=== PATIENT | male | born 1970 | race Two or more races ===

== ENCOUNTER 2019-12-11 08:43 | Day surgery (SDC) | payer OTHER ==
[~2019-12-11] VITALS: Ht 175.3 cm; Wt 83.9 kg
[2019-12-11] VITALS (7 sets, daily range): BP systolic 118–139; BP diastolic 71–89
--- NOTE | 2019-12-11 06:35 | Anethesia Preoperative Eval ---
Anesthesia Pre-op PMH/ROS General Date of Evaluation: Dec 11, 2019 Anesthesiologist: Dilan ASA Score: ASA 3 Mallampati Score Class I : Soft palate, uvula, fauces, pillars visible Class II: Soft palate, uvula, fauces visible Class III: Soft palate, base of uvula visible Class IV: Only hard plate visible Mallampati Classification: Class II Surgeon: Michelle Diagnosis: Screening Surgical Procedure: Colonoscopy Anesthesia History: none Family History: no anesthesia problems Allergies: Coded Allergies: No Known Allergies (Unverified , 12/11/19) Medications: see eMAR Patient NPO?: Yes NPO Date: Dec 11, 2019 NPO Time: 00:00 Past Medical History Cardiovascular: Reports: HTN, other - HLD; Denies: CAD, [place], valve dz, arrhythmia Pulmonary: Denies: asthma, COPD, RADHA, other Gastrointestinal/Genitourinary: Denies: GERD, CRI, ESRD, other Neurologic/Psychiatric: Reports: CVA; Denies: dementia, depression/anxiety, TIA, other Endocrine: Denies: DM, hypothyroidism, steroids, other HEENT: Denies: cataract (L), cataract (R), glaucoma, BARROW (L), BARROW (R), other Hematology/Immune: Denies: anemia, DVT, bleeding disorder, other Musculoskeletal/Integumentary: Denies: OA, RA, DJD, DDD, edema, other PSxH Narrative: lumbar microdiscectomy Anesthesia Pre-op Phys. Exam Physician Exam see chart Constitutional: NAD Cardiovascular: RRR Respiratory: CTA Airway Exam Mallampati Score: Class II MO: full ROM: full Anesthesia Pre-op A/P Labs see chart Risk Assessment & Plan Assessment: ASA III Plan: MAC Status Change Before Surgery: No Pre-Antibiotics Drug: N/A Ruth Ann Kong MD Dec 11, 2019 06:35
[2019-12-11] MEDS ORDERED: ATORVASTATIN CA20 MG ORAL (09:24)
[2019-12-11] MEDS ORDERED: FOLIC ACID1 MG ORAL (09:24)
[2019-12-11] MEDS ORDERED: ASPIRIN81 MG ORAL (09:24)
[2019-12-11] MEDS ORDERED: PLAVIX75 MG ORAL (09:24)
[2019-12-11] MEDS ORDERED: COQ-10100 M1 PO (09:24)
[2019-12-11] MEDS ORDERED: Lidocaine 1% MPF 10mg/ml 5ml ONE (09:30)
--- NOTE | 2019-12-11 09:35 | Pre-Procedure Note/Attestation ---
Pre-Procedure Note/Attestation Complete Prior to Procedure Planned Procedure: not applicable Procedure Narrative: colonoscopy Indications for Procedure Pre-Operative Diagnosis: screening Attestation I attest that I discussed the nature of the procedure; its benefits; risks and complications; and alternatives (and the risks and benefits of such alternatives), prior to the procedure, with the patient (or the patient's legal hr representative). I attest that, if there was a reasonable possibility of needing a blood tra nsfusion, the patient (or the patient's legal hr representative) was given the [facility] standardized written summary, pursuant to the Ernesto [place] Blood Safety Act ([place] Health and Safety Code # 1645, as amended). I attest that I re-evaluated the patient just prior to the surgery and that there has been no change in the patient's H&P, except as documented below: Chavo Martinez MD Dec 11, 2019 09:35
--- NOTE | 2019-12-11 09:35 | Short Stay Surgery H&P ---
History of Present Illness History of Present Illness Chief Complaint See attached H&P Patient forgot to stop Plavix as instructed Advised polyps would not be removed due to bleeding risk Option of cancelling procedure and postponing offered Patient declined cancellation. Wants to proceed with colonoscopy as planned understands may need to repeat colonoscopy if polyps found HPI Benjamín Perkins is a 49 year old male who was admitted on for Colon Screening Patient History Allergies: Coded Allergies: No Known Allergies (Unverified , 12/11/19) Medication History Scheduled Aspirin* (Aspirin*), 81 MG ORAL DAILY, (Reported) Atorvastatin Calcium* (Atorvastatin Calcium*), 20 MG ORAL BEDTIME, (Reported) Clopidogrel Bisulfate* (Plavix*), 75 MG ORAL DAILY, (Reported) Folic Acid* (Folic Acid*), 1 MG ORAL DAILY, (Reported) Ubidecarenone (Coq-10), 100 MG PO DAILY, (Reported) Physical Exam Vital Signs Last Vital Signs Date Time Temp Pulse Resp B/P (MAP) Pulse Ox O2 Delivery O2 Flow Rate FiO2 12/11/19 09:18 Room Air 12/11/19 09:18 96.3 49 18 139/89 97 Plan Attestation Are the patient's medical conditions optimized for surgery? Chavo Martinez MD Dec 11, 2019 09:35
--- NOTE | 2019-12-11 10:06 | Immediate Post-Op Evaluation ---
Immediate Post-Op Evalulation Immediate Post-Op Evalulation Procedure: Colonoscopy Date of Evaluation: Dec 11, 2019 Time of Evaluation: 10:06 IV Fluids: 200 Blood Products: 0 Estimated Blood Loss: 0 Urinary Output: 0 Blood Pressure Systolic: 131 Blood Pressure Diastolic: 81 Pulse Rate: 51 Respiratory Rate: 16 O2 Sat by Pulse Oximetry: 100 Temperature (Fahrenheit): 97.3 Pain Score (1-10): 0 Nausea: No Vomiting: No Complications 0 Patient Status: awake, reacts, patent, none Hydration Status: adequate Drug: N/A Ruth Ann Kong MD Dec 11, 2019 10:06
--- NOTE | 2019-12-11 10:07 | 48 Hour Post Anesthesia Eval ---
Post Anesthesia Evaluation Procedure: Colonoscopy Date of Evaluation: Dec 11, 2019 Airway: patent Nausea: No Vomiting: No Pain Intensity: 0 Hydration Status: adequate Cardiopulmonary Status: at baseline Mental Status/LOC: patient returned to baseline Post-Anesthesia Complications: 0 Follow-up care needed: ready to discharge Ruth Ann Kong MD Dec 11, 2019 10:07
--- NOTE | 2019-12-11 12:15 | Procedure Note ---
DATE OF PROCEDURE: 12/11/2019 GASTROENTEROLOGY PROCEDURE REPORT PROCEDURE: Screening colonoscopy. SURGEON: Leah Martinez MD. ANESTHESIOLOGIST: Abiel Villegas MD. PRE-ENDOSCOPIC DIAGNOSIS: Screening. POST-ENDOSCOPIC DIAGNOSIS: Pedunculated polyp seen in the transverse colon, which was left in situ. DESCRIPTION OF PROCEDURE: The procedure its risks, indications, alternatives, and possible complications including, but not limited to bleeding, infection, perforation, , and anesthesia complications were explained to the patient and informed consent was obtained. The patient was then sedated in the left lateral decubitus position and a rectal exam was done. The colonoscope was then introduced in the rectum and advanced to the cecum. The cecum was identified by the appearance of the ileocecal valve. The colonoscope was then gradually withdrawn and mucosa examined carefully. Examination of the colonic mucosa revealed a 1.5 cm pedunculated polyp in the transverse colon. Because of patient's use of the aspirin and Plavix, the polyp could not be removed at this time. Remainder of the colonoscopic examination including the retroflex view the rectum was unremarkable. The colonoscope was removed. The patient was sent to recovery in good condition. COMPLICATIONS: None. ASSESSMENT: This screening colonoscopy yielded a colonic polyp which could not be removed at this time due to the patient's use of the anti-platelet therapy. The screening examination will have to be repeated where the Plavix being held 5 days prior to the procedure if okay with the patient's neurologist or primary care physician. RECOMMENDATIONS: 1. Reschedule completion of the screening colonoscopy in the next month or so. 2. Hold the Plavix five days prior to the procedure. Leah Martinez M.D. DR: Igor JOB#: [id number] CC: MD LEAH Marie M.D. ; FAX#: [phone]
--- NOTE | 2019-12-11 14:12 | Endoscopy Procedure Note ---
Endoscopy Procedure Note General Indication for Procedure: screen Procedures Performed: colonoscopy Operative Findings/Diagnosis: TV Colon polyp Specimen: none Pt Tolerated Procedure Well: Yes Estimated Blood Loss: none Anesthesia Anesthesiologist: see noteds Anesthesia: MAC Medications Medication Given: see anesthesia record Inserted Devices Implant(s) used?: No GI Core Measures 50 yrs or older w/o bx or poly: Not Applicable 10yrs. F/U recommended: Not Applicable Chavo Martinez MD Dec 11, 2019 14:12
--- NOTE | 2019-12-11 14:27 | Brief Operative Note ---
Immediate Post Operative Note Operative Note Chief Complaint: screen Pre-op Diagnosis: screening Procedure: colon Post-op Diagnosis: colon polyp Surgeon: pily Anesthesiologist: see report Specimen: yes Complications: none Condition: stable Fluids: given per anesthesia Implant(s) used?: No Chavo Martinez MD Dec 11, 2019 14:28
== END 2019-12-11 11:15 | disposition home or self-care (01) ==
LOC: GAS 08:43
DX: Z12.11 Encounter for screening for malignant neoplasm of colon (principal); K63.5 Polyp of colon; Z79.02 Long term (current) use of antithrombotics/antiplatelets; Z79.82 Long term (current) use of aspirin; I10 Essential (primary) hypertension; E78.5 Hyperlipidemia, unspecified; Z86.73 Personal history of transient ischemic attack (TIA), and cerebral infarction without residual deficits
CPT/HCPCS: 45378; 94003; J2704; J7030; U0002; 94150

== ENCOUNTER 2019-12-23 06:11 | Day surgery (SDC) | payer OTHER ==
[2019-12-23] VITALS (9 sets, daily range): BP systolic 124–139; BP diastolic 56–91
[~2019-12-23] VITALS: Ht 175.3 cm; Wt 83.9 kg
[~2019-12-23 06:11] MED LIST: ASPIRIN81 MG ORAL; ATORVASTATIN CA20 MG ORAL; COQ-10100 M1 PO; FOLIC ACID1 MG ORAL; LR 1000ml 1,000 ML IVLG SCH; PLAVIX75 MG ORAL
[2019-12-23] MEDS ORDERED: fentaNYL 100 mcg/2 mL IV ONE (06:38)
[2019-12-23] MEDS ORDERED: Midazolam 2mg/2ml Inj ONE (06:38)
--- NOTE | 2019-12-23 06:54 | Anethesia Preoperative Eval ---
Anesthesia Pre-op PMH/ROS General Date of Evaluation: Dec 23, 2019 Time of Evaluation: 06:49 Anesthesiologist: Mellissa ASA Score: ASA 3 Mallampati Score Class I : Soft palate, uvula, fauces, pillars visible Class II: Soft palate, uvula, fauces visible Class III: Soft palate, base of uvula visible Class IV: Only hard plate visible Mallampati Classification: Class II Surgeon: Sharon Diagnosis: Colon CA screening Surgical Procedure: Colonoscopy Anesthesia History: none Family History: no anesthesia problems Allergies: Coded Allergies: No Known Allergies (Unverified , 12/11/19) Medications: see eMAR Patient NPO?: Yes Past Medical History Cardiovascular: Reports: HTN; Denies: CAD, [place], valve dz, arrhythmia, other Pulmonary: Denies: asthma, COPD, RADHA, other Gastrointestinal/Genitourinary: Reports: GERD; Denies: CRI, ESRD, other Neurologic/Psychiatric: Reports: CVA Endocrine: Denies: DM, hypothyroidism, steroids, other HEENT: Denies: cataract (L), cataract (R), glaucoma, NOME (L), NOME (R), other Hematology/Immune: Denies: anemia, DVT, bleeding disorder, other Musculoskeletal/Integumentary: Denies: OA, RA, DJD, DDD, edema, other PMH Narrative: as above PSxH Narrative: Lumbar discectomy Anesthesia Pre-op Phys. Exam Physician Exam Last Vital Signs Date Time Temp Pulse Resp B/P (MAP) Pulse Ox O2 Delivery O2 Flow Rate FiO2 12/23/19 06:39 97.8 51 18 126/79 98 Room Air Constitutional: NAD Neurologic: CN 2-12 intact Cardiovascular: RRR, no M/R/G Respiratory: CTA Gastrointestinal: S/NT/ND Airway Exam Mallampati Score: Class II MO: full Neck: flexible ROM: full Teeth: intact Dentures: no upper, no lower Anesthesia Pre-op A/P Risk Assessment & Plan Assessment: ASA 3 Plan: MAC Status Change Before Surgery: Fahad Evans MD Dec 23, 2019 06:54
[2019-12-23] MEDS ORDERED: LR 1000ml ONE (07:00)
--- NOTE | 2019-12-23 07:08 | Short Stay Surgery H&P ---
History of Present Illness History of Present Illness Chief Complaint see typed H&P HPI Benjamín Perkins is a 49 year old male who was admitted on for Colon Screening Patient History Allergies: Coded Allergies: No Known Allergies (Unverified , 12/11/19) Medication History Scheduled Aspirin* (Aspirin*), 81 MG ORAL DAILY, (Reported) Atorvastatin Calcium* (Atorvastatin Calcium*), 20 MG ORAL BEDTIME, (Reported) Clopidogrel Bisulfate* (Plavix*), 75 MG ORAL DAILY, (Reported) Folic Acid* (Folic Acid*), 1 MG ORAL DAILY, (Reported) Ubidecarenone (Coq-10), 100 MG PO DAILY, (Reported) Physical Exam Vital Signs Last Vital Signs Date Time Temp Pulse Resp B/P (MAP) Pulse Ox O2 Delivery O2 Flow Rate FiO2 12/23/19 06:39 97.8 51 18 126/79 98 Room Air Plan Attestation Are the patient's medical conditions optimized for surgery? Chavo Martinez MD Dec 23, 2019 07:08
--- NOTE | 2019-12-23 07:09 | Pre-Procedure Note/Attestation ---
Pre-Procedure Note/Attestation Complete Prior to Procedure Planned Procedure: not applicable Procedure Narrative: colonoscopy with polypectomy Indications for Procedure Pre-Operative Diagnosis: recent colon polyp, here for completion of screening colonoscopy Attestation I attest that I discussed the nature of the procedure; its benefits; risks and complications; and alternatives (and the risks and benefits of such alternatives), prior to the procedure, with the patient (or the patient's legal manufacturer representative). I attest that, if there was a reasonable possibility of needing a blood transfusion, the patient (or the patient's legal manufacturer representative) was given the [facility] standardized written summary, pursuant to the Ernesto [place] Blood Safety Act ([place] Health and Safety Code # 1645, as amended). I attest that I re-evaluated the patient just prior to the surgery and that there has been no change in the patient's H&P, except as documented below: Chavo Martinez MD Dec 23, 2019 07:09
[2019-12-23] MEDS ORDERED: fentaNYL 100 mcg/2 mL IV PRN (07:15)
[2019-12-23] MEDS ORDERED: LR 1000ml 1,000 ML IVLG SCH (07:15)
--- NOTE | 2019-12-23 08:03 | Immediate Post-Op Evaluation ---
Immediate Post-Op Evalulation Immediate Post-Op Evalulation Procedure: Colonoscopy polypectomy Date of Evaluation: Dec 23, 2019 Time of Evaluation: 08:02 IV Fluids: 700 Blood Products: none Estimated Blood Loss: none Urinary Output: none Blood Pressure Systolic: 132 Blood Pressure Diastolic: 76 Pulse Rate: 58 Respiratory Rate: 18 O2 Sat by Pulse Oximetry: 99 Temperature (Fahrenheit): 97.6 Pain Score (1-10): 1 Nausea: No Vomiting: No Complications none Patient Status: reacts, patent, none Hydration Status: adequate Fahad Malloy MD Dec 23, 2019 08:03
--- NOTE | 2019-12-23 08:04 | Endoscopy Procedure Note ---
Endoscopy Procedure Note General Indication for Procedure: completion of screening colonoscopy, polyp on recent screening colonoscopy Operative Findings/Diagnosis: colon polyps, bx, snare, inj, clip Specimen: yes Pt Tolerated Procedure Well: Yes Estimated Blood Loss: none Anesthesia Anesthesiologist: see notes Anesthesia: MAC, moderate sedation Medications Medication Given: see anesthesia record Inserted Devices Implant(s) used?: No GI Core Measures 50 yrs or older w/o bx or poly: No 10yrs. F/U recommended: No If not recommended, why?: Above average risk 18 years or older w/prev. colo: No <3yrs. since last colonoscopy: No Med reason:<3 yrs.: Last colonoscopy >= to 3yrs: Yes Chavo Martinez MD Dec 23, 2019 08:04
--- NOTE | 2019-12-23 08:05 | Brief Operative Note ---
Immediate Post Operative Note Operative Note Chief Complaint: colon polyp seen on recent screening colon Pre-op Diagnosis: recent colon polyp, here for completion of screening colonoscopy Procedure: colonoscopy bx polypectomy injection clip Surgeon: pily Anesthesiologist: see report Anesthesia: MAC Specimen: yes Complications: none Condition: stable Fluids: see anesthesia record Estimated Blood Loss: none Drains: none Implant(s) used?: No Chavo Martinez MD Dec 23, 2019 08:05
--- NOTE | 2019-12-23 09:25 | 48 Hour Post Anesthesia Eval ---
Post Anesthesia Evaluation Procedure: Colonoscopy polypectomy Date of Evaluation: Dec 23, 2019 Time of Evaluation: 09:24 Blood Pressure Systolic: 124 0: 56 Pulse Rate: 68 Respiratory Rate: 18 Temperature (Fahrenheit): 97.6 O2 Sat by Pulse Oximetry: 98 Airway: patent Nausea: No Vomiting: No Pain Intensity: 1 Hydration Status: adequate Cardiopulmonary Status: stable Mental Status/LOC: patient returned to baseline Follow-up Care/Observations: n/a Post-Anesthesia Complications: none Follow-up care needed: ready to discharge Fahad Malloy MD Dec 23, 2019 09:25
--- NOTE | 2019-12-23 22:45 | Procedure Note ---
DATE OF PROCEDURE: 12/23/2019 GASTROENTEROLOGY PROCEDURE REPORT PROCEDURE: Completion of Screening colonoscopy. SURGEON: Chavo Martinez MD. ANESTHESIOLOGIST: Fahad Malloy MD. PRE-ENDOSCOPIC DIAGNOSIS: This patient had a screening colonoscopy on 12/11/2019 and a polyp was found but it could not be removed since the patient the had not stopped his Plavix. This colonoscopy was therefore scheduled to be performed to complete the previous screening colonoscopy and remove all polyps identified during that exam. POST-ENDOSCOPIC DIAGNOSES: 1. A 4 to 5 mm polyp which was flat on a fold in the proximal ascending colon, status post injection with saline followed by hot snare polypectomy, followed by Endoclip placement. 2. Diminutive polyp next to the Larger polyp in the proximal transverse colon, status post biopsy removal. 3. A 1.5 cm pedunculated polyp in the proximal transverse colon which was injected in the base with saline followed by hot snare polypectomy followed by Endoclip placement. 4. Diminutive distal sigmoid polyp, status post biopsy removal. DESCRIPTION OF PROCEDURE: The procedure its risks, indications, alternatives, and possible complications were explained to the patient and informed consent was obtained. On this examination, the patient had stopped both aspirin and Plavix for 5 days prior to the procedure. The patient had a screening colonoscopy performed on 12/11/2019 where a polyp was identified; however, the procedure could not be completed with polypectomy since he had not discontinued his Plavix. The patient was therefore advised to have repeat colonoscopy to have the polyps removed, which was scheduled for today. The patient was sedated in the left lateral decubitus position and rectal exam was done, which was unremarkable. The colonoscope was then introduced into the rectum and advanced to the cecum without difficulty. The cecum was identified by the appearance of the ileocecal cecal valve and appendiceal orifice. The colonoscope was then gradually withdrawn and mucosa examined carefully. Examination of the colonic mucosa revealed four polyps listed above the. These were removed with a combination of the biopsy forceps and hot snare polypectomy, along with saline injection and subsequent Endoclip placement on the polypectomy site. Retroflex view of the rectum was unremarkable. The colonoscope was removed. The patient was sent to recovery in good condition. COMPLICATIONS: None. ASSESSMENT: This examination was notable for the polyps which were removed as listed above. The biopsies will be evaluated and the patient will be the counseled at followup. RECOMMENDATIONS: 1. Resume oral diet. 2. Followup biopsy results. 3. Resume aspirin today and Plavix tomorrow. 4. Repeat colonoscopy in three years. Thank you for asking me to participate in the care of this patient. Chavo Martinez M.D. DR: Igor JOB#: [id number] CC: MD CHAVO Marie M.D. ; FAX#: [phone] [facility]
== END 2019-12-23 08:50 | disposition home or self-care (01) ==
LOC: GAS 06:11
DX: Z12.11 Encounter for screening for malignant neoplasm of colon (principal); K63.5 Polyp of colon; I10 Essential (primary) hypertension; K21.9 Gastro-esophageal reflux disease without esophagitis; Z79.82 Long term (current) use of aspirin; Z79.899 Other long term (current) drug therapy; Z86.73 Personal history of transient ischemic attack (TIA), and cerebral infarction without residual deficits
CPT/HCPCS: 45380; 45381; 45382; 45385; 94003; J2250; J2704; J3010; J7120; U0002; 94150